=== PATIENT | male | born 1935 | race Caucasian/White ===

== ENCOUNTER 2019-08-23 10:38 | Observation (INO) ==
[2019-08-23] MEDS ORDERED: ASPIRIN 81 MG TAB.CHEW PO ONE (10:46)
[2019-08-23 11:07] LABS: Hematocrit 43.8 % (42.0-52.0); Hemoglobin 15.7 gm/dL (13.5-18.0); Mean Cell Volume 92.4 fl (78-100); Mean Corpuscular Hemoglobin 33.1 pg (27-31); Mean Corpuscular Hgb Conc 35.8 g/dl (32-36); Mean Platelet Volume 9.6 fl (8-11.3); Neutrophil # 3.8 K/mm3 (1.3-6.0); Neutrophil % 56.4 % (42-75.0); Platelet Count 259 K/mm3 (150-450); Red Blood Count 4.74 M/mm3 (4.7-6.0); Red Cell Distribution Width 12.8 % (11.5-14.0); White Blood Count 6.7 K/mm3 (4.0-10.5)
[2019-08-23] MEDS: NITROGLYCERIN 0.4 MG/TAB BTL SL PRN ×3 (11:10→11:22)
[2019-08-23 11:25] LABS: ALT 27 U/L (19-67); AST 17 U/L (0-48); Albumin * 3.7 gm/dl (3.4-5.0); Alkaline Phosphatase * 77 U/L (50-170); Anion Gap 11.3 mmol/L (6.8-13.8); BUN/Creatinine Ratio 24.1 (9.0-21.6); Bilirubin, Total 1.4 mg/dL (0.0-1.1); Blood Urea Nitrogen 20 mg/dL (6-23); Ca. Corrected For Albumin 8.7 mg/dL (8.4-10.2); Calcium * 8.8 mg/dL (7.9-10.9); Carbon Dioxide 25.8 mmol/L (24-32.6); Chloride 103 mmol/L (97-106); Glucose * 146 mg/dL (70-110); Potassium 4.1 mmol/L (3.4-4.6); Sodium 136 mmol/L (132-142); Total Protein 6.9 gm/dL (6.2-8.2)
[2019-08-23 11:31] LABS: Troponin I Less than 0.017 ng/mL (0.00-0.10)
--- NOTE | 2019-08-23 11:54 | ERNOTE ---
Chest Pain/Cardiac HPI Date of Service: 08/23/19 Chief Complaint: Chest Pain Time Seen by Provider: 08/23/19 10:46 Source: patient, RN notes reviewed, past records Exam Limitations: no limitations Immunizations: IMMUNIZATION HX Immunizations Up to Date Yes History of Influenza Vaccine Yes Hx Pneumococcal Vaccination Yes Allergies/Adverse Reactions: Allergies Sulfa (Sulfonamide Antibiotics) Adverse Reaction (Intermediate, Verified 08/23/19 10:57) JAUNDICE morphine Adverse Reaction (Mild, Verified 08/23/19 10:57) "DOESNT WORK FOR ME" Home Medications: HOME MEDICATIONS aspirin 325 mg tablet,delayed release 325 mg PO BID tab 07/06/18 [Last Taken Unknown] lisinopril 5 mg tablet 5 mg PO DAILY #90 tab 07/06/18 [Last Taken Unknown] Narrative: Luiz is an 83-year-old male who presents to the emergency department from home for chest pain. He reports that this initially began 4 days ago. It has been intermittent since but seems to worsen with exertion and improved with rest. He reports that his twin brother had a heart attack 6 months ago and his symptoms are similar. He has no prior history of AR or ACS, but does have a pacemaker. He denies any associated symptoms. He has taken a full-strength aspirin this morning. His pain is located in the middle of his chest and radiates outward. He reports that his pain is a 6 on a scale of 1-10 with exertion and decreases to a 3 with rest. Timing: intermittent Severity/Quality: moderate, dull Location: central Modifying Factors - Improves: Present: rest. Absent: eating, position Modifying Factors - Worsens: Present: exercise. Absent: breathing, eating, position Nitro Today/Relief: no nitro taken today Aspirin Treatment Today: 325 mg x 1, provided at home Associated Symptoms: Present: denies symptoms Prior Chest Pain/Cardiac Workup: Denies: prior chest pain, heart attack, cardiac cath Prior Treatment: Denies: recently seen Review of Systems - Review of Systems Constitutional: Absent: recent illness, fever, chills, malaise EYE: Present: no symptoms reported ENT: Absent: nose congestion, sore throat Respiratory: Absent: shortness of breath, cough Cardiology: Present: chest pain. 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 Macular degeneration (Chronic) Osteoarthritis (Chronic) Vision loss (Chronic) Paresthesia of hand, bilateral (Chronic) Pacemaker (Chronic) Obstructive sleep apnea (Chronic) Neck pain (Chronic) Hypertension (Chronic) CAD (coronary artery disease) (Chronic) Arthritis (Chronic) Hyperlipidemia Pacemaker Surgical History: Surgical History (Last Reviewed 08/23/19 @ 12:09 by Maxine Root NP) H/O sinus surgery History of ankle surgery History of appendectomy History of prior ablation treatment Total knee replacement status Family History: Family History (Last Reviewed 08/23/19 @ 12:09 by Maxine Root NP) Brother Heart disease Hypertension Hx of CABG Arrhythmia Father Hypertension Mother , AR age 58 Myocardial infarction Heart disease Social History: (Last Reviewed 08/23/19 @ 12:09 by Maxien Root NP) Social History: Marital status: household members: spouse current occupational status: retired current occupation: retired Highest education level completed: Associate degree: academi Service: Yes branch: [employer] Tobacco: Smoking Status: Former smoker Alcohol: alcohol intake: current alcohol intake frequency: a few times a week Substance Use: substance use type: does not use Dietary Habits: caffeine: Yes caffeine comment: somedays Type: carbonated beverages Physical Exam - Physical Exam General Appearance: Present: wd/wn, alert, no apparent distress, cheerful Head Exam: Present: normal inspection Eye Exam: Normal inspection: bilateral Neck: Present: normal inspection, nontender, supple, full range of motion Respiratory: Present: no respiratory distress, normal breath sounds, no accessory muscle use, chest nontender, lungs clear Cardiovascular/Chest: Present: regular rate, rhythm, normal peripheral pulses, systolic murmur Gastrointestinal/Abdominal: Present: nontender, nondistended, soft Back Exam: Present: normal inspection, normal range of motion Extremity Exam: Present: normal inspection, non-tender, normal range of motion, no edema Neurological Exam: Present: alert, oriented, normal mood/affect, no motor/sensory deficits Skin Exam: Present: normal color, warm/dry Progress - Results and Orders Patient's Lab Results:: I have reviewed the patient's lab results. - Vital Signs Patient's Vital Signs:: I have reviewed the patient's vital signs. Vital Signs: Vital Signs 08/23/19 10:45 08/23/19 10:57 08/23/19 11:00 Temperature 36.8 C Pulse Rate 70 72 67 Respiratory Rate 16 19 Blood Pressure 145/81 129/78 O2 Sat by Pulse Oximetry 95 97 08/23/19 11:14 08/23/19 11:19 08/23/19 11:35 Temperature Pulse Rate 71 71 69 Respiratory Rate 12 15 12 Blood Pressure 110/62 109/63 108/64 O2 Sat by Pulse Oximetry 94 96 94 - EKG EKG #1 EKG: other - Paced rhythm EKG read: Reviewed by me - X-Ray X-Ray #1 X-Ray: chest Interpretation: Reviewed by me X-ray Comments: No acute cardiopulmonary findings - Progress/Reassessment Chief Complaint: Chest Pain Progress:: Improved Plan - Plan Plan: EKG and troponin are unremarkable. The patient was given sublingual nitroglycerin x3 with resolution of pain. He then reported a midsternal dull ache and Toradol was ordered. I spoke with Dr. Chin, the patient's primary care provider, who agreed to admit the patient to observation status to rule out AR. Departure Clinical Impression: Chest pain, rule out acute myocardial infarction - Departure Disposition: Still a patient Condition: Stable Referrals: Jc Chin DO [Primary Care Provider] -
[2019-08-23] MEDS ORDERED: KETOROLAC TROMETHAMINE 30 MG/ML VIAL IV ONE (12:02)
--- NOTE | 2019-08-23 13:44 | HPDIS ---
Chief Complaint - Chief Complaint Date of Service: 08/23/19 Time of Service: 13:33 Chief Complaint: Chest Pain History of Present Illness: Luiz is an 83 yo male with PMH of second degree heart block requiring pacemaker. He also has a twin brother that just had an VT with stenting several months ago. He reports an episode of chest pressure 4 days ago that resolved, but returned this morning. He was just sitting when symptoms oc curred. Pain is described as tightness in his upper chest without other radiation. No shortness of breath or diaphoresis. He reports chronic cough, but no recent changes. No fever or chills. Pain is not changed by exercise or food. He reports he is very active, including chpping wood with an axe and clearing brush piles. He reports the pain has mostly subsided after taking 3 nitro in the ER. He reports very mild left anterior chest wall tightness currently. 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 Macular degeneration (Chronic) Osteoarthritis (Chronic) Vision loss (Chronic) Paresthesia of hand, bilateral (Chronic) Pacemaker (Chronic) Obstructive sleep apnea (Chronic) Neck pain (Chronic) Hypertension (Chronic) CAD (coronary artery disease) (Chronic) Arthritis (Chronic) Hyperlipidemia Pacemaker Surgical History: Surgical History (Last Reviewed 08/23/19 @ 12:40 by Letitia Nayak RN) H/O sinus surgery History of ankle surgery History of appendectomy History of prior ablation treatment Total knee replacement status Family History: Family History (Last Reviewed 08/23/19 @ 12:40 by Letitia Nayak RN) Brother Heart disease Hypertension Hx of CABG Arrhythmia Father Hypertension Mother , [place] age 58 Myocardial infarction Heart disease Social History: (Last Reviewed 08/23/19 @ 12:40 by Letitia Nayak RN) Social History: Marital status: household members: spouse current occupational status: retired current occupation: retired Highest education level completed: Associate degree: academi Service: Yes branch: [employer] Tobacco: Smoking Status: Former smoker Alcohol: alcohol intake: current alcohol intake frequency: a few times a week Substance Use: substance use type: does not use Dietary Habits: caffeine: Yes caffeine comment: somedays Type: carbonated beverages Review Of Systems (GEN) - Review of Systems Generalized/Overall Review: Absent: Weakness, Chills, Fever EENTM: Present: No Symptoms Reported Respiratory: Present: Cough. Absent: Shortness of Breath Cardiac: Present: Chest Pain. Absent: Edema, Palpitations, Syncope Abdominal: Absent: Nausea, Vomiting, Abdominal Pain, Constipation, Diarrhea Genitourinary: Present: No Symptoms Reported Musculoskeletal: Present: No Symptoms Reported Neurological: Absent: Headache, Anxiety, Depressed, Numbness, Weakness Skin: Present: No Symptoms Reported Endocrine: Present: No Symptoms Reported Immunizations: IMMUNIZATION HX Immunizations Up to Date Yes History of Influenza Vaccine Yes Hx Pneumococcal Vaccination Yes Allergies/Adverse Reactions: Allergies Allergy/AdvReac Type Severity Reaction Status Date / Time Sulfa (Sulfonamide AdvReac Intermediate JAUNDICE Verified 08/23/19 12:40 Antibiotics) morphine AdvReac Mild "DOESNT Verified 08/23/19 12:40 WORK FOR ME" Home Medications: HOME MEDICATIONS aspirin 325 mg tablet,delayed release 325 mg PO BID tab 07/06/18 [Last Taken Unknown] lisinopril 5 mg tablet 5 mg PO DAILY #90 tab 07/06/18 [Last Taken Unknown] Vits A,C,E/Lutein/Minerals [I-Macie Tablet] 1 ea PO DAILY 08/23/19 [Last Taken Unknown] Exam - Exam Vital Signs: Vital Signs - Last Taken Temp 36.4 C 08/23/19 12:44 Pulse 60 08/23/19 12:44 Resp 16 08/23/19 12:44 BP 117/62 08/23/19 12:44 Pulse Ox 95 08/23/19 12:44 Constitutional: Present: Alert, Oriented x3, Cooperative ENT Exam: Present: hearing grossly normal Eye Exam: bilateral eye: normal inspection Neck: Present: other - no bruits Respiratory: Present: lungs clear, normal breath sounds Cardiovascular/Chest: Present: regular rate, rhythm, no edema, systolic murmur - 2+ Peripheral Pulses: radial (R): 2+ Abdomen: Present: Normal bowel sounds, soft, nontender, nondistended Extremity: Present: normal inspection Skin Exam: Present: normal color, warm/dry, no cyanosis Appearance: Present: appropriate appearance, appropriate insight Eye contact: Present: cooperative, good eye contact, normal speech Diagnostic Studies: Abnormal Lab Results 08/23/19 08/23/19 Range/Units 11:06 11:06 MCH 33.1 H (27-31) pg Monocytes % 13.4 H (0.0-9) % Eosinophils % 6.5 H (0.0-3.0) % BUN/Creatinine Ratio 24.1 H (9.0-21.6) Random Glucose 146 H (70-110) mg/dL Total Bilirubin 1.4 H (0.0-1.1) mg/dL Laboratory Results WBC 6.7 K/mm3 (4.0-10.5) 08/23/19 11:06 RBC 4.74 M/mm3 (4.7-6.0) 08/23/19 11:06 Hgb 15.7 gm/dL (13.5-18.0) 08/23/19 11:06 Hct 43.8 % (42.0-52.0) 08/23/19 11:06 MCV 92.4 fl (78-100) 08/23/19 11:06 MCH 33.1 pg (27-31) H 08/23/19 11:06 MCHC 35.8 g/dl (32-36) 08/23/19 11:06 RDW 12.8 % (11.5-14.0) 08/23/19 11:06 Plt Count 259 K/mm3 (150-450) 08/23/19 11:06 MPV 9.6 fl (8-11.3) 08/23/19 11:06 Immature Gran % (Auto) 0.20 % (0.001-0.429) 08/23/19 11:06 Immature Gran # (Auto) 0.01 K/mm3 (0.000-0.0310) 08/23/19 11:06 Neutrophils % 56.4 % (42-75.0) 08/23/19 11:06 Lymphocytes % 22.6 % (20-51) 08/23/19 11:06 Monocytes % 13.4 % (0.0-9) H 08/23/19 11:06 Eosinophils % 6.5 % (0.0-3.0) H 08/23/19 11:06 Basophils % 0.9 % (0.0-1.0) 08/23/19 11:06 Nucleated RBC % 0.0 k/mm3 (0-1) 08/23/19 11:06 Neutrophils # 3.8 K/mm3 (1.3-6.0) 08/23/19 11:06 Lymphocytes # 1.50 k/mm3 (1.5-3.5) 08/23/19 11:06 Monocytes # 0.9 k/mm3 (0.0-1.0) 08/23/19 11:06 Eosinophils # 0.4 k/mm3 (0.0-0.7) 08/23/19 11:06 Absolute Basophils 0.1 k/mm3 (0.0-0.1) 08/23/19 11:06 Sodium 136 mmol/L (132-142) 08/23/19 11:06 Plasma Sodium 137 mmol/L (130-142) 08/23/19 11:06 Potassium 4.1 mmol/L (3.4-4.6) 08/23/19 11:06 Chloride 103 mmol/L (97-106) 08/23/19 11:06 Carbon Dioxide 25.8 mmol/L (24-32.6) 08/23/19 11:06 Anion Gap 11.3 mmol/L (6.8-13.8) 08/23/19 11:06 BUN 20 mg/dL (6-23) 08/23/19 11:06 Creatinine 0.83 mg/dL (0.4-1.4) 08/23/19 11:06 Est GFR (Non-Af Amer) 95 mL/min (60-130) 08/23/19 11:06 BUN/Creatinine Ratio 24.1 (9.0-21.6) H 08/23/19 11:06 Random Glucose 146 mg/dL (70-110) H 08/23/19 11:06 Calcium 8.8 mg/dL (7.9-10.9) 08/23/19 11:06 Calcium Adj for Albumin 8.7 mg/dL (8.4-10.2) 08/23/19 11:06 Total Bilirubin 1.4 mg/dL (0.0-1.1) H 08/23/19 11:06 AST 17 U/L (0-48) 08/23/19 11:06 ALT 27 U/L (19-67) 08/23/19 11:06 Alkaline Phosphatase 77 U/L (50-170) 08/23/19 11:06 Troponin I Less than 0.017 ng/mL (0.00-0.10) 08/23/19 11:06 Total Protein 6.9 gm/dL (6.2-8.2) 08/23/19 11:06 Albumin 3.7 gm/dl (3.4-5.0) 08/23/19 11:06 Assessment/Plan - Narrative Narrative: Luiz is a pleasant 83 yo male to be admitted for chest pain. He will be admitted to observation on telemetry with serial troponin. Initial workup is negative for acute change including troponin, EKG, and Chest Xray. He does have a pacemaker, placed about 10 years ago. This was reportedly placed due to 2nd degree heart block. There is increased concern to monitor him for the full 6 hours due to his twin brother having a similar episode just several months ago where he was admitted for chest pain rule out and ruled in and transferred for stenting. If there are no changes will plan to discharge to home later this evening. - Assessment/Plan (1) Chest pain Problem: Acute Qualifiers: Chest pain type: unspecified Qualified Code(s): R07.9 - Chest pain, unspecified (2) Pacemaker Problem: Chronic (1) Chest pain Problem: Acute Qualifiers: Chest pain type: unspecified Qualified Code(s): R07.9 - Chest pain, unspecified (2) Pacemaker Problem: Chronic Date of Discharge:: 08/23/19 Hospital Course: Luiz was admitted due to chest pain with significant family history of VT (in his twin brother several months ago) and past history of smoking. Initial evaluation of chest pain was unremarkable and after admitted for observation he continued to do well. He had no significant chest pain or changes on telemetry. His repeat troponin was normal. He reports doing well and wants to go home. Will discharge to home. Due to this episode and family hisotry will plan to do an outpatient stress test and echocardiogram to evaluate potentially new heart murmur. No changes in medication. Procedures Performed: none Results and Findings: Lab Pending Results 08/23/19 11:06: WBC 6.7, RBC 4.74, Hgb 15.7, Hct 43.8, MCV 92.4, MCH 33.1 H, MCHC 35.8, RDW 12.8, Plt Count 259, MPV 9.6, Immature Gran % (Auto) 0.20, Immature Gran # (Auto) 0.01, Neutrophils % 56.4, Lymphocytes % 22.6, Monocytes % 13.4 H, Eosinophils % 6.5 H, Basophils % 0.9, Nucleated RBC % 0.0, Neutrophils # 3.8, Lymphocytes # 1.50, Monocytes # 0.9, Eosinophils # 0.4, Absolute Basophils 0.1 08/23/19 11:06: Sodium 136, Plasma Sodium 137, Potassium 4.1, Chloride 103, Carbon Dioxide 25.8, Anion Gap 11.3, BUN 20, Creatinine 0.83, Est GFR (Non-Af Amer) 95, BUN/Creatinine Ratio 24.1 H, Random Glucose 146 H, Calcium 8.8, Calcium Adj for Albumin 8.7, Total Bilirubin 1.4 H, AST 17, ALT 27, Alkaline Phosphatase 77, Troponin I Less than 0.017, Total Protein 6.9, Albumin 3.7 Discharge Location: Home Disposition: Home self-care Condition: Good Discharge Activity: Activity as tolerated Discharge Diet: Low fat/chol Referrals: Jc Chin DO [Primary Care Provider] - One Week Problem Oriented Discharge Instructions to Patient/Family: Nonspecific Chest Pain, Adult, Lism-lc-Ickt Complete Home Medications List: Complete Home Medication List: aspirin 325 mg tablet,delayed release 325 mg PO BID tab 07/06/18 lisinopril 5 mg tablet 5 mg PO DAILY #90 tab 07/06/18 Vits A,C,E/Lutein/Minerals [I-Macie Tablet] 1 ea PO DAILY 08/23/19
[2019-08-23 20:39] VITALS: BP 141/70
== END 2019-08-23 21:24 | disposition home or self-care (01) ==
LOC: MS 10:38 → ER 10:38 → MS 12:42
PROVIDERS: ADMIT Family Medicine; ATTEND Family Medicine
CPT/HCPCS: 36415; 71020; 71046; 80053; 84484; 85025; 93005; 96374; 99284; 99285; G0378